=== PATIENT | male | born 1995 | race Caucasian/White ===

== ENCOUNTER 2019-07-04 18:41 | Emergency (ER) | payer SELFPAY ==
[~2019-07-04] VITALS: Ht 170.2 cm; Wt 127.0 kg
== END 2019-07-04 19:11 | disposition home or self-care (01) ==
LOC: ED 18:41
DX: M24.411 Recurrent dislocation, right shoulder (principal)
CPT/HCPCS: 99283

== ENCOUNTER 2022-02-28 16:31 | Emergency (ER) | payer SELFPAY ==
[~2022-02-28] VITALS: Ht 170.2 cm; Wt 127.0 kg
== END 2022-02-28 19:25 | disposition home or self-care (01) ==
LOC: ED 16:31
DX: F32.9 Major depressive disorder, single episode, unspecified (principal); G40.909 Epilepsy, unspecified, not intractable, without status epilepticus; Z20.822 Contact with and (suspected) exposure to COVID-19
CPT/HCPCS: 36415; 80048; 81001; 84443; 85025; 87502; 99285; C9803; G0480; Q0177; U0003